=== PATIENT | male | born 1985 | race Caucasian/White ===

== ENCOUNTER 2022-04-14 09:30 | Emergency (ER) | payer SELFPAY ==
[~2022-04-14] VITALS: Ht 170.2 cm; Wt 90.7 kg
--- NOTE | 2022-04-14 09:35 | NUR ---
[email or web address], c/o chronic back pain 07/19 ps. on room air, breathing evenly and unlabored. kept comfortable, will continue to monitor accordingly.
[2022-04-14] MEDS ORDERED: HYDROCODONE/APAP 5/325MG TABLET ONE (09:52)
[2022-04-14] MEDS ORDERED: IBUPROFEN 600 MG TABLET ONE (09:52)
[2022-04-14] MEDS ORDERED: IBUPROFEN 600 MG TABLET PO ONE (10:00)
[2022-04-14] MEDS ORDERED: HYDROCODONE/APAP 5/325MG TABLET PO ONE (10:00)
[2022-04-14 10:17] VITALS: BP 140/81
--- NOTE | 2022-04-14 10:18 | NUR ---
Patient discharged to home in stable condition. Written and verbal after care instructions given. Patient verbalizes understanding of instruction.
== END 2022-04-14 10:17 | disposition home or self-care (01) ==
LOC: ER 09:37
DX: G89.29 Other chronic pain (principal); M54.50 Low back pain, unspecified

== ENCOUNTER 2022-05-07 04:15 | Emergency (ER) | payer SELFPAY ==
[~2022-05-07] VITALS: Ht 175.3 cm; Wt 90.7 kg
[2022-05-07 04:25] VITALS: BP 111/69
--- NOTE | 2022-05-07 04:25 | NUR ---
[id number] C/O TAKING EXTRA DOES OF MUSCLE RELAXER MethocarbamoL X 20 MIN AGO . PT A/OX4. TOLERATING R/A WELL; RESP EVEN AND NONLABORED. VSS CONNECTED PT TO POX AND MONITOR.
--- NOTE | 2022-05-07 04:37 | NUR ---
[facility] AT PT'S BEDSIDE
--- NOTE | 2022-05-07 04:38 | NUR ---
Patient discharged to home in stable condition. Written and verbal after care instructions given. Patient verbalizes understanding of instruction. PT ambulatory with a steady gait
== END 2022-05-07 04:48 | disposition home or self-care (01) ==
LOC: ER 04:23
DX: R40.0 Somnolence (principal); T48.1X5A Adverse effect of skeletal muscle relaxants [neuromuscular blocking agents], initial encounter; Z60.2 Problems related to living alone; Y92.89 Other specified places as the place of occurrence of the external cause